=== PATIENT | female | born 1940 | race Two or more races ===

== ENCOUNTER 2024-08-10 11:39 | Inpatient (IN) | payer OTHER, MEDICAID ==
[2024-08-09] MEDS: SODIUM CHLORIDE 0.9% 1,000 ML IV SCH (19:45)
[~2024-08-10] VITALS: Ht 152.4 cm; Wt 47.9 kg
--- NOTE | 2024-08-10 11:54 | ED.PDOC ---
Altered Mental Status HPI Comments 84 year old female PER presents to the ED with chief complaint of ALOC. EMS reports patient's family had noted patient has been increasingly confused with associated fever and fatigue since yesterday. EMS relays patient is normally ambulatory, but has not been wanting to get out of bed lately. EMS states patient has history of dementia. Patient notes that she has abdominal pain. Patient denies any chest pain, SOB, dizziness, headache, or N/V/D. 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 Family History Family History: Reviewed,noncontributory to illness, Unknown Social History Smoker: Non-Smoker Alcohol: Denies ETOH Use Drugs: Denies Drug Use Lives In: Home Constitutional: reports: fatigue, fever; denies: chills, diaphoresis, malaise, sweats, weakness, others EENTM: denies: blurred vision, double vision, ear bleeding, ear discharge, ear drainage, ear pain, ear ringing, eye pain, eye redness, hearing loss, mouth pain, mouth swelling, nasal discharge, nose bleeding, nose congestion, nose pain, photophobia, tearing, throat pain, throat swelling, voice changes, others Respiratory: denies: cough, hemoptysis, orthopnea, SOB at rest, shortness of breath, SOB with excertion, stridor, wheezing, others Cardiovascular: denies: chest pain, dizzy spells, diaphoresis, Dyspnea on exertion, edema, irregular heart beat, left arm pain, lightheadedness, palpit ations, PND, syncope, others Gastrointestinal: reports: abdominal pain; denies: abdomen distended, blood streaked bowels, constipated, diarrhea, dysphagia, difficulty swallowing, hematemesis, melena, nausea, poor appetite, poor fluid intake, rectal bleeding, rectal pain, vomiting, others Genitourinary: denies: abnormal vagina bleeding, burning, dyspareunia, dysuria, flank pain, frequency, hematuria, incontinence, pain, , vagina dischar ge, urgency, others Neurological: denies: dizziness, fainting, headache, left sided numbness, left sided weakness, numbness, paresthesia, pre-existing deficit, right sided numbness, right sided weakness, seizure, speech problems, tingling, tremors, weakness, others Musculoskeletal: denies: back pain, gout, joint pain, joint swelling, muscle pain, muscle stiffness, neck pain, others Integumetry: denies: bruises, change in color, change in hair/nails, dryness, laceration, lesions, lumps, rash, wounds, others Allergic/Immunocompromised: denies: Difficulty Healing, Frequent Infections, Hives, Itching, others Hematologic/Lymphatic: denies: anemia, blood clots, easy bleeding, easy bruising, swollen glands, others Endocrine: denies: excessive hunger, excessive sweating, excessive thirst, excessive urination, flushing, intolerance to cold, intolerance to heat, unexplained weight gain, unexplained weight loss, others Psychiatric: denies: anxiety, bipolar disorder, depression, hopeless, panic disorder, schizophrenia, sleepless, suicidal, others All Other Systems: Reviewed and Negative Physical Exam General Appearance: No Apparent Distress, Normal HEENT: Normal ENT Inspection, PERRL/EOMI Neck: Full Range of Motion, Non-Tender, Normal, Normal Inspection Respiratory: Chest Non-Tender, Lungs Clear, No Accessory Muscle Use, No Respiratory Distress, Normal Breath Sounds Cardiovascular: No Edema, No JVD, No Murmur, No Gallop, Normal Peripheral Pulses, Regular Rate/Rhythm Breast Exam: Deferred Gastrointestinal: No Organomegaly, No Pulsatile Mass, Normal Bowel Sounds, So ft, Tenderness (Abdominal tenderness, no guarding.) Genitalia: Deferred Pelvic: Deferred Rectal: Deferred Extremities: No calf tenderness, Normal capillary refill, Normal inspection, Normal range of motion, Non-tender, No pedal edema Musculoskeletal : Apperance: Normal Neurologic: Alert, 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 no STEMI. Was a procedure done? Was a procedure done?: No Differential Diagnosis (ALOC) Differential Diagnosis: Dehydration, Hypoglycemia, Encephalopathy, Meningitis, Hypoxemia, Seizure, Closed Head Injury, CVA, Mass Lesion, SAH, Drug Overdose, ETOH Intoxication, Heart Failure, Renal Failure Other Differential Diagnosis Drug abuse/withdrawal, alcohol abuse/withdrawal, uremic encephalopathy, hepatic encephalopathy, encephalitis, meningitis, space occupying mass, electrolyte abnormalities, TIA, CVA, polypharmacy, DKA,... X-Ray, Labs, Meds, VS Vital Signs Date Time Temp Pulse Resp B/P (MAP) Pulse Ox O2 Delivery O2 Flow Rate FiO2 08/10/24 15:00 58 16 113/49 (70) 98 08/10/24 13:01 98.6 61 17 112/39 (63) 100 98.6 08/10/24 12:08 63 20 97 Nasal Cannula* 2 28 08/10/24 12:08 98.6 63 20 116/48 (70) 97 98.6 08/10/24 12:05 66 08/10/24 12:01 101.3 63 22 122/53 (76) 94 08/10/24 11:54 58 08/10/24 11:48 58 Lab Test 08/10/24 15:27 08/10/24 14:43 08/10/24 12:49 08/10/24 12:40 Range/Units Troponin I High Sensitivity 11 9 </=34 ng/L Urine Color Yellow Yellow Urine Clarity Clear Clear Urine pH 6.5 5.0-9.0 Urine Specific Ector 1.048 H 1.001-1.035 Urine Protein Trace H Negative Urine Ketones Negative Negative Urine Blood 1+ H Negative /uL Urine Nitrite Negative Negative Urine Bilirubin Negative Negative Urine Urobilinogen Normal Negative mg/dL Urine Leukocyte Esterase 1+ Negative /uL Urine RBC 15 0 - 4 /hpf Urine WBC 28 0 - 5 /hpf Urine Squamous Epithelial Cells Few <5 /hpf Urine Bacteria None seen None Seen /hpf Urine Mucus Few None Seen Urine Glucose Normal Normal mg/dL Influenza Type A Antigen Positive Negative Influenza Type B Antigen Negative Negative SARS-CoV-2 Antigen (Rapid) Negative NEGATIVE Group A Streptococcus Rapid Positive Test 08/10/24 12:10 Range/Units White Blood Count 13.3 H 4.4-10.8 10^3/uL Red Blood Count 4.79 4.0-5.20 10^6/uL Hemoglobin 13.0 12.2-16.2 g/dL Hematocrit 38.6 36.0-46.0 % Mean Corpuscular Volume 80.6 80.0-100.0 fL Mean Corpuscular Hemoglobin 27.2 L 28.0-32.0 pg Mean Corpuscular Hemoglobin Concent 33.8 32.0-36.0 g/dL Red Cell Distribution Width 15.1 H 11.8-14.3 % Platelet Count 166 140-450 10^3/uL Mean Platelet Volume 8.0 6.9-10.8 fL Neutrophils (%) (Auto) 86.7 H 37.0-80.0 % Lymphocytes (%) (Auto) 6.8 L 10.0-50.0 % Monocytes (%) (Auto) 6.2 0.0-12.0 % Eosinophils (%) (Auto) 0.0 0.0-7.0 % Basophils (%) (Auto) 0.3 0.0-2.0 % Neutrophils # (Auto) 11.5 H 1.6-8.6 10 ^3/uL Lymphocytes # (Auto) 0.9 0.4-5.4 10 ^3/uL Monocytes # (Auto) 0.8 0-1.3 10 ^3/uL Eosinophils # (Auto) 0 0-0.8 10 ^3/uL Basophils # (Auto) 0 0-0.2 10 ^3/uL Nucleated Red Blood Cells 0.0 % Sodium Level 137 136-145 mmol/L Potassium Level 3.6 3.5-5.1 mmol/L Chloride Level 106 98-107 mmol/L Carbon Dioxide Level 23 20-31 mmol/L Anion Gap 8 5-15 Blood Urea Nitrogen 15 9-23 mg/dL Creatinine 1.29 H 0.550-1.02 mg/dL Glomerular Filtration Rate Calc 40 >90 mL/min BUN/Creatinine Ratio 11.6 10.0-20.0 Serum Glucose 113 H 74-106 mg/dL Calcium Level 11.9 H 8.7-10.4 mg/dL Total Bilirubin 1.2 H 0.2-1.0 mg/dL Aspartate Amino Transferase (AST) 20 13-40 U/L Alanine Aminotransferase (ALT) 13 7-40 U/L Alkaline Phosphatase 84 46-116 U/L Troponin I High Sensitivity 10 </=34 ng/L Total Protein 7.1 5.7-8.2 g/dL Albumin 4.5 3.2-4.8 g/dL Lipase 31 12-53 U/L Current Medications Medications (Trade) Dose Ordered Sig/Billy Route Start Time Stop Time Status Last Admin Metoclopramide HCl (Reglan Injection) 10 mg ONCE ONCE IV 08/10/24 12:00 08/10/24 12:01 DC 08/10/24 12:09 Sodium Chloride 1,000 ml @ 1,000 mls/hr Q1H ONCE IVB 08/10/24 12:00 08/10/24 12:59 DC 08/10/24 12:10 Oseltamivir Phosphate (Tamiflu 75MG Capsule) 75 mg ONCE ONCE PO 08/10/24 15:15 08/10/24 15:16 DC 08/10/24 16:05 Amoxicillin 500 mg ONCE ONCE PO 08/10/24 15:30 08/10/24 15:31 DC 08/10/24 16:08 CT Abd/Pel: Findings: Lung Bases: Atelectasis and scarring in the lung bases. Liver: The liver is normal in size. No focal lesions. Normal hepatic vascular enhancement. Gallbladder and biliary Tree: Cholelithiasis noted without secondary findings of cholecystitis or biliary obstruction. Spleen: Unremarkable Pancreas: The pancreas is normal in appearance without focal lesions or abnormal enhancement. Adrenal Glands: Unremarkable Kidneys: Left lower pole renal calculi measuring up to 10 mm with associated renal cortical thinning and scarring. No hydronephrosis. Bladder: Unremarkable Bowel: The stomach is grossly normal in appearance. Small bowel and colon are normal in caliber and distribution. Normal appendix is visualized in the right lower quadrant without findings of appendicitis. Sigmoid diverticulosis. Ascites: Absent Lymphadenopathy: No mesenteric, retroperitoneal or periportal lymphadenopathy. Abdominal wall and Mesentery: Unremarkable. Vasculature: The visualized abdominal aorta is normal in size and caliber. There is calcified atherosclerotic plaque involving the aorta and its branches. Abdominal and pelvic vessels demonstrate normal enhancement. Pelvic Organs: Unremarkable Musculoskeletal: Grade 1 anterolisthesis of L4 on L5 and L5 on S1. IMPRESSION: 1. No acute abdominal or pelvic finding. Cholelithiasis. Left lower pole renal calculi measuring up to 10 mm. No hydronephrosis. Diverticulosis. CT Head: FINDINGS: There is no evidence of acute intracranial hemorrhage, mass, mass effect midline shift. There is no hydrocephalus or extra-axial fluid collection. There is a small area of hypodensity in the left anterior basal ganglia which May relate to chronic lacunar infarct. The licona-white matter differentiation is otherwise maintained. The visualized paranasal sinuses and mastoid air cells are clear. The calvarium is intact. IMPRESSION: 1. No acute intracranial process. 2. Likely chronic lacunar infarct in the left anterior basal ganglia. Chest XR: FINDINGS: Lines and tubes: None Cardiomediastinal silhouette: prominent Pulmonary vasculature: prominent Lung expansion: normal Lung airspace: normal Lung interstitium: normal Pleura: normal Pneumothorax: no Bones: Unremarkable Other: no IMPRESSION: Mild cardiomegaly with pulmonary congestion. Time of 1ST Reevaluation: 12:50 Reevaluation 1ST: Unchanged Patient Education/Counseling: Diagnosis, Treatment Family Education/Counseling: No Family Present Additional Information I reviewed the following notes from patient's past medical encounters: None The following tests were ordered, and results were reviewed by me: CT head, CT Abd/Pel W/ IV Con, EKG, Strep, Influenza, Covid, Troponin, Lipase, CBC, CMP, UA Additional Information was gathered from interviewing the following independent historians: EMS I reviewed and agreed with the following test results read by other providers: CT head, CT Abd/Pel W/ IV Con I discussed treatment and results with medical personnel. Departure 1 Departure Time of Disposition: 15:06 Impression: Primary Impression: Acute encephalopathy Additional Impressions: Acute renal failure Influenza A Strep throat Disposition: ADMITTED INPATIENT Admit to: Tele Condition: Guarded Critical Care Note Critical Care Time?: Yes (45 min-critical care time only) Stability Stability form required: No Heart Score Heart Score: Heart Score Response (Comments) Value History N/A 0 EKG N/A 0 Age N/A 0 Risk Factors N/A 0 Troponin N/A 0 Total 0 I personally scribed for SILVINA LANDEROS MD ([email or web address]) on 08/10/24 at 11:54. Electronically submitted by Osei Li ([email or web address]). I personally scribed for SILVINA LANDEROS MD ([email or web address]) on 08/10/24 at 15:02. Electronically submitted by Osei Li ([email or web address]). I personally scribed for SILVINA LANDEROS MD ([email or web address]) on 08/10/24 at 15:07. Electronically submitted by Osei Li ([email or web address]). I personally scribed for SILVINA LANDEROS MD ([email or web address]) on 08/10/24 at 15:09. Electronically submitted by Osei Li ([email or web address]). SILVINA LANDEROS MD Aug 10, 2024 11:54
[2024-08-10 12:08] VITALS: PULSE 63; RESP 20; O2SAT 97
[2024-08-10] MEDS: METOCLOPRAMIDE HCL 5MG/ml INJ 2ml VIAL IV ONE (12:09)
[2024-08-10] MEDS: SODIUM CHLORIDE 0.9% 1,000 ML IVB ONE (12:10)
[2024-08-10] MEDS: IOHEXOL 300 MG/ML 100ML BOTTLE IJ ONE (12:10)
--- NOTE | 2024-08-10 12:25 | DVH ---
XY CHEST PORTABLE, HISTORY: sob COMPARISON: None None TECHNICAL DATA: 1 view of the chest was obtained. FINDINGS: Lines and tubes: None Cardiomediastinal silhouette: prominent Pulmonary vasculature: prominent Lung expansion: normal Lung airspace: normal Lung interstitium: normal Pleura: normal Pneumothorax: no Bones: Unremarkable Other: no IMPRESSION: Mild cardiomegaly with pulmonary congestion.
[2024-08-10 12:30] LABS: Basophils # (auto) 0 10 ^3/uL (0-0.2); Basophils % (auto) 0.3 % (0.0-2.0); Eosinophils # (auto) 0 10 ^3/uL (0-0.8); Hematocrit 38.6 % (36.0-46.0); Lymphocytes # (auto) 0.9 10 ^3/uL (0.4-5.4); Lymphocytes % (auto) 6.8 % (10.0-50.0); Mean Corpuscular Hemoglobin 27.2 pg (28.0-32.0); Mean Corpuscular Hgb Conc. 33.8 g/dL (32.0-36.0); Mean Corpuscular Volume 80.6 fL (80.0-100.0); Monocytes # (auto) 0.8 10 ^3/uL (0-1.3); Monocytes % (auto) 6.2 % (0.0-12.0); Neutrophils # (auto) 11.5 10 ^3/uL (1.6-8.6); Neutrophils % (auto) 86.7 % (37.0-80.0); Platelet Count (auto) 166 10^3/uL (140-450); Red Blood Cells 4.79 10^6/uL (4.0-5.20); Red Cell Distribution Width 15.1 % (11.8-14.3); White Blood Cell 13.3 10^3/uL (4.4-10.8)
[2024-08-10 12:55] LABS: Alanine Aminotransferase 13 U/L (7-40); Albumin 4.5 g/dL (3.2-4.8); Alkaline Phosphatase 84 U/L (46-116); Anion Gap 8 (5-15); Aspartate Aminotransferase 20 U/L (13-40); BUN/Creatinine Ratio 11.6 (10.0-20.0); Blood Urea Nitrogen 15 mg/dL (9-23); Carbon Dioxide 23 mmol/L (20-31); Chloride 106 mmol/L (98-107); Potassium 3.6 mmol/L (3.5-5.1); Sodium 137 mmol/L (136-145)
[2024-08-10 12:56] LABS: Bilirubin, Total 1.2 mg/dL (0.2-1.0); Total Protein 7.1 g/dL (5.7-8.2)
[2024-08-10 13:01] LABS: Calcium 11.9 mg/dL (8.7-10.4); Glucose 113 mg/dL (74-106)
--- NOTE | 2024-08-10 13:31 | DVH ---
EXAM: CT HEAD WITHOUT CONTRAST HISTORY: ams COMPARISON: None TECHNIQUE: Axial images of the head were obtained and reformatted in coronal and sagittal planes. All CT scans at this medical facility are performed using dose modulation techniques as appropriate t o a performed exam including the following: Automated exposure control was utilized; adjustment of th e MA and/or KV according to patient size; and use of iterative reconstruction technique. CT Dose: CTDI volume is 51.89 mGy. Dose-length product is 815.04 mGy*cm FINDINGS: There is no evidence of acute intracranial hemorrhage, mass, mass effect midline shift. There is no h ydrocephalus or extra-axial fluid collection. There is a small area of hypodensity in the left anter ior basal ganglia which May relate to chronic lacunar infarct. The licona-white matter differentiation is otherwise maintained. The visualized paranasal sinuses and mastoid air cells are clear. The calvarium is intact. IMPRESSION: 1. No acute intracranial process. 2. Likely chronic lacunar infarct in the left anterior basal ganglia. HS:Y
[2024-08-10 13:34] LABS: Lipase 31 U/L (12-53)
--- NOTE | 2024-08-10 13:36 | DVH ---
Exam: CT CT AB PEL WITH IV CON ONLY History: abd pain COMPARISON: None Technique: Multidetector spiral CT of the abdomen and pelvis was performed from lung bases to pubic symphysis. Intravenous contrast was administered during this examination. Portal venous imaging was obtained. Axial, coronal and sagittal multiplanar reformats were performed by the technologist on a separate workstation. Radiation Dose : Abdomen/Pelvis: CTDIvol 8 mGy, DLP 392 mGy*cm. CONTRAST: Type of contrast: Omni 300 Contrast injected: 100 mL Findings: Lung Bases: Atelectasis and scarring in the lung bases. Liver: The liver is normal in size. No focal lesions. Normal hepatic vascular enhancement. Gallbladder and biliary Tree: Cholelithiasis noted without secondary findings of cholecystitis or lucy iary obstruction. Spleen: Unremarkable Pancreas: The pancreas is normal in appearance without focal lesions or abnormal enhancement. Adrenal Glands: Unremarkable Kidneys: Left lower pole renal calculi measuring up to 10 mm with associated renal cortical thinnin g and scarring. No hydronephrosis. Bladder: Unremarkable Bowel: The stomach is grossly normal in appearance. Small bowel and colon are normal in caliber and d istribution. Normal appendix is visualized in the right lower quadrant without findings of appendici tis. Sigmoid diverticulosis. Ascites: Absent Lymphadenopathy: No mesenteric, retroperitoneal or periportal lymphadenopathy. Abdominal wall and Mesentery: Unremarkable. Vasculature: The visualized abdominal aorta is normal in size and caliber. There is calcified atheros clerotic plaque involving the aorta and its branches. Abdominal and pelvic vessels demonstrate normal enhancement. Pelvic Organs: Unremarkable Musculoskeletal: Grade 1 anterolisthesis of L4 on L5 and L5 on S1. IMPRESSION: 1. No acute abdominal or pelvic finding. Cholelithiasis. Left lower pole renal calculi measuring up t o 10 mm. No hydronephrosis. Diverticulosis. Radiation optimization: All CT scans at this facility use at least one of these dose optimization juan hniques: Automated exposure control mA and/or kV adjustment per patient size (includes targeted exams where dose is matched to clinical indication) or iterative reconstruction. HS:Y
[2024-08-10 14:07] LABS: Rapid Influenza B Negative (Negative)
[2024-08-10 14:08] LABS: Rapid Influenza A Positive (Negative)
[2024-08-10 14:10] LABS: Rapid Strep A Screen-Throat Positive
[2024-08-10 14:11] LABS: COVID19 ANTIGEN SOFIA FIA NEGATIVE (NEGATIVE)
[2024-08-10 14:54] LABS: Urine Bacteria None Seen /hpf (None Seen)
[2024-08-10] MEDS ORDERED: PENICILLIN V POTASSIUM 250 MG TAB PO ONE (15:15)
[2024-08-10 15:32] LABS: Urine Blood 1+ /uL (Negative); Urine Clarity Clear (Clear); Urine Color Yellow (Yellow); Urine Mucus FEW (None Seen); Urine Protein, UAD TRACE (Negative); Urine Specific Gravity 1.048 (1.001-1.035); Urine Squamous Epithelial Cell FEW /hpf (<5); Urine Urobilinogen Normal (Negative); Urine WBC 28 /hpf (0 - 5); Urine pH 6.5 (5.0-9.0)
[2024-08-10] MEDS: AMOXICILLIN TRIHYDRATE 250 MG CAP PO ONE (15:32)
[2024-08-10] MEDS: OSELTAMIVIR 75 MG CAP PO ONE (16:05)
[2024-08-10] MEDS ORDERED: DOCUSATE SOD 100 MG CAP PO PRN (18:45)
[2024-08-10] MEDS ORDERED: ACETAMINOPHEN 325 MG TAB PO PRN (18:45)
[2024-08-10] MEDS ORDERED: ONDANSETRON HCL 4 MG/2 ML VIAL IV PRN (18:45)
--- NOTE | 2024-08-10 20:22 | DVHHP2 ---
History of Present Illness Reason for Visit: Acute encephalopathy History of Present Illness The patient is a 84-year-old female with past medical history of dementia and hypertension who presented to [facility] ED for evaluation of altered level of consciousness. Family reports patient has increasing confusion state, associated fever, fatigue, generalized weakness, abdominal pain, getting worse that prompted this visit. Patient was seen and evaluated in the ED, laboratory data shows WBC 13.3, platelets 166, sodium 137, potassium 3.6, BUN 15, creatinine 1.29, GFR 40, glucose 113, calcium 11.9, total bilirubin 1.2, troponin 11, blood pressure 120/62, heart rate 66, temperature 98.6 F, O2 sa turation 97% on oxygen. Head CT showed no acute intracranial process, likely chronic lacunar infarct in the left anterior basal ganglia. Urinalysis positive for urinary tract infection. Patient was started on IV antibiotic regimen Rocephin, please see medication orders section in the computer. On my assessment, daughter at bedside, patient denies chest pain, no headache, no dizziness, no shortness of breath, no nausea, no vomiting, no fever, no chills. Patient was admitted for further evaluation and medical management. Past Medical History Dementia, HTN, CVA Past Surgical History Unknown Family History Reviewed, noncontributory to the management of this case. Past Social History The patient lives at home, denies smoking, alcohol or illicit drugs abuse. Review of Systems Constitutional: Yes: Fever, Weakness, Other (Fatigue); No: Chills, Sweats, Malaise Eyes: No: Pain, Vision change, Conjunctivae inflammation, Eyelid inflammation, Other, Redness ENT: No: Ear pain, Ear discharge, Nose pain, Nose discharge, Nose congestion, Mouth pain, Mouth swelling, Throat pain, Throat swelling, Other Respiratory: No: Cough, Dry, Shortness of breath, SOB with excertion, Wheezing, Hemoptysis, Pleuritic Pain, Sputum, Wheezing, Other Cardiovascular: No: Chest Pain, Palpitations, Orthopnea, Paroxysmal Noc. Dyspnea, Edema, Lt Headedness, Other Gastrointestinal: Abdominal Pain; No: Nausea, Vomiting, Diarrhea, Constipation, Melena, Hematochezia, Other Genitourinary: No Dysuria, No Frequency, No Incontinence, No Hematuria, No Retention, No Other Musculoskeletal: No: other, neck pain, shoulder pain, arm pain, back pain, hand pain, leg pain, foot pain Skin: No: Rash, Lesions, Jaundice, Bruising, Other Neurological: Confusion; No: Weakness, Numbness, Incoordination, Change in speech, Seizures, Other Allergies: Coded Allergies: NO KNOWN ALLERGIES (Unverified , 08/10/24) Medications Current Medications Medications Dose Ordered Sig/Billy Route Start Time Stop Time Status Last Admin Dose Admin Oseltamivir Phosphate 30 mg Q12HR PO 08/10/24 22:00 08/15/24 21:59 Ceftriaxone Sodium 50 ml @ 100 mls/hr DAILY@09 IV 08/11/24 09:00 Donepezil HCl 10 mg HS PO 08/10/24 22:00 Sodium Chloride 1,000 ml @ 60 mls/hr [id number] IV 08/10/24 18:45 08/09/24 19:45 60 MLS/HR Acetaminophen/ Hydrocodone Bitart 1 tab Q4HP PRN PO 08/10/24 18:45 Ondansetron HCl 4 mg Q4HP PRN IV 08/10/24 18:45 Docusate Sodium 100 mg BIDPRN PRN PO 08/10/24 18:45 Multivitamins 1 tab DAILY PO 08/11/24 10:00 Acetaminophen 650 mg Q6HP PRN PO 08/10/24 18:45 Exam Vital Signs Vital Signs Date Time Temp Pulse Resp B/P (MAP) Pulse Ox O2 Delivery O2 Flow Rate FiO2 08/10/24 18:19 66 18 120/62 (81) 98 08/10/24 13:01 98.6 98.6 08/10/24 12:08 Nasal Cannula* 2 28 General Appearance: Alert, Cooperative, No acute distress, Other (Oriented x2) HEENT: Atraumatic, PERRLA, EOMI, Mucous membr. moist/pink Respiratory: Clear to auscultation, Normal air movement Cardiovascular: Regular rate, Normal S1, Normal S2, No murmurs Abdominal: Normal bowel sounds, Soft, No tenderness, No hepatospenomegaly, No masses Extremities: No clubbing, No cyanosis, No edema, Normal pulses, No tenderness/swelling Skin: No rashes, No breakdown, No significant lesion Neuro: Normal speech, Normal tone, Sensation intact, Cranial nerves 3-12 NL, Reflexes 2+, Other (Generalized weakness) Psych/Mental Status: Mental status NL, Mood NL Labs/Xrays Labs Test 08/10/24 15:27 08/10/24 14:43 08/10/24 12:40 08/10/24 12:10 Range/Units Troponin I High Sensitivity 11 </=34 ng/L Urine Color Yellow Yellow Urine Clarity Clear Clear Urine pH 6.5 5.0-9.0 Urine Specific [place] 1.048 H 1.001-1.035 Urine Protein Trace H Negative Urine Ketones Negative Negative Urine Blood 1+ H Negative /uL Urine Nitrite Negative Negative Urine Bilirubin Negative Negative Urine Urobilinogen Normal Negative mg/dL Urine Leukocyte Esterase 1+ Negative /uL Urine RBC 15 0 - 4 /hpf Urine WBC 28 0 - 5 /hpf Urine Squamous Epithelial Cells Few <5 /hpf Urine Bacteria None seen None Seen /hpf Urine Mucus Few None Seen Urine Glucose Normal Normal mg/dL Influenza Type A Antigen Positive Negative Influenza Type B Antigen Negative Negative SARS-CoV-2 Antigen (Rapid) Negative NEGATIVE Group A Streptococcus Rapid Positive White Blood Count 13.3 H 4.4-10.8 10^3/uL Red Blood Count 4.79 4.0-5.20 10^6/uL Hemoglobin 13.0 12.2-16.2 g/dL Hematocrit 38.6 36.0-46.0 % Mean Corpuscular Volume 80.6 80.0-100.0 fL Mean Corpuscular Hemoglobin 27.2 L 28.0-32.0 pg Mean Corpuscular Hemoglobin Concent 33.8 32.0-36.0 g/dL Red Cell Distribution Width 15.1 H 11.8-14.3 % Platelet Count 166 140-450 10^3/uL Mean Platelet Volume 8.0 6.9-10.8 fL Neutrophils (%) (Auto) 86.7 H 37.0-80.0 % Lymphocytes (%) (Auto) 6.8 L 10.0-50.0 % Monocytes (%) (Auto) 6.2 0.0-12.0 % Eosinophils (%) (Auto) 0.0 0.0-7.0 % Basophils (%) (Auto) 0.3 0.0-2.0 % Neutrophils # (Auto) 11.5 H 1.6-8.6 10 ^3/uL Lymphocytes # (Auto) 0.9 0.4-5.4 10 ^3/uL Monocytes # (Auto) 0.8 0-1.3 10 ^3/uL Eosinophils # (Auto) 0 0-0.8 10 ^3/uL Basophils # (Auto) 0 0-0.2 10 ^3/uL Nucleated Red Blood Cells 0.0 % Sodium Level 137 136-145 mmol/L Potassium Level 3.6 3.5-5.1 mmol/L Chloride Level 106 98-107 mmol/L Carbon Dioxide Level 23 20-31 mmol/L Anion Gap 8 5-15 Blood Urea Nitrogen 15 9-23 mg/dL Creatinine 1.29 H 0.550-1.02 mg/dL Glomerular Filtration Rate Calc 40 >90 mL/min BUN/Creatinine Ratio 11.6 10.0-20.0 Serum Glucose 113 H 74-106 mg/dL Calcium Level 11.9 H 8.7-10.4 mg/dL Total Bilirubin 1.2 H 0.2-1.0 mg/dL Aspartate Amino Transferase (AST) 20 13-40 U/L Alanine Aminotransferase (ALT) 13 7-40 U/L Alkaline Phosphatase 84 46-116 U/L Total Protein 7.1 5.7-8.2 g/dL Albumin 4.5 3.2-4.8 g/dL Lipase 31 12-53 U/L PATIENT: AMADEO BHATIACT: [id number] UNIT: [id number] : 1940 LOC: ER ROOM / BED: / AGE / SEX: 84 / F ADM STATUS: REG ER SERVICE 1150 ORDERING PHYSICIAN: SILVINA LANDEROS MD PROCEDURE(s): ABPLIV - CT AB PEL WITH IV CON ONLY REASON: abd pain ORDER NUMBER(s): [id number], ACCESSION NUMBER(s): [id number] Exam: CT CT AB PEL WITH IV CON ONLY History: abd pain COMPARISON: None Technique: Multidetector spiral CT of the abdomen and pelvis was performed from lung bases to pubic symphysis. Intravenous contrast was administered during this examination. Portal venous imaging was obtained. Axial, coronal and sagittal multiplanar reformats were performed by the technologist on a separate workstation. Radiation Dose : Abdomen/Pelvis: CTDIvol 8 mGy, DLP 392 mGy*cm. CONTRAST: Type of contrast: Omni 300 Contrast injected: 100 mL Findings: Lung Bases: Atelectasis and scarring in the lung bases. Liver: The liver is normal in size. No focal lesions. Normal hepatic vascular enhancement. Gallbladder and biliary Tree: Cholelithiasis noted without secondary findings of cholecystitis or biliary obstruction. Spleen: Unremarkable Pancreas: The pancreas is normal in appearance without focal lesions or abnormal enhancement. Adrenal Glands: Unremarkable Kidneys: Left lower pole renal calculi measuring up to 10 mm with associated renal cortical thinning and scarring. No hydronephrosis. Bladder: Unremarkable Bowel: The stomach is grossly normal in appearance. Small bowel and colon are normal in caliber and distribution. Normal appendix is visualized in the right lower quadrant without findings of appendicitis. Sigmoid diverticulosis. Ascites: Absent Lymphadenopathy: No mesenteric, retroperitoneal or periportal lymphadenopathy. Abdominal wall and Mesentery: Unremarkable. Vasculature: The visualized abdominal aorta is normal in size and caliber. There is calcified atherosclerotic plaque involving the aorta and its branches. Abdominal and pelvic vessels demonstrate normal enhancement. Pelvic Organs: Unremarkable Musculoskeletal: Grade 1 anterolisthesis of L4 on L5 and L5 on S1. IMPRESSION: 1. No acute abdominal or pelvic finding. Cholelithiasis. Left lower pole renal calculi measuring up to 10 mm. No hydronephrosis. Diverticulosis. ORDERING PHYSICIAN: SILVINA LANDEROS MD PROCEDURE(s): HWOCT - HEAD WITHOUT CONTRAST REASON: [facility] ORDER NUMBER(s): [id number], ACCESSION NUMBER(s): [id number] EXAM: CT HEAD WITHOUT CONTRAST HISTORY: [facility] COMPARISON: None TECHNIQUE: Axial images of the head were obtained and reformatted in coronal and sagittal planes. All CT scans at this medical facility are performed using dose modulation techniques as appropriate to a performed exam including the following: Automated exposure control was utilized; adjustment of the MA and/or KV according to patient size; and use of iterative reconstruction technique. CT Dose: CTDI volume is 51.89 mGy. Dose-length product is 815.04 mGy*cm FINDINGS: There is no evidence of acute intracranial hemorrhage, mass, mass effect midline shift. There is no hydrocephalus or extra-axial fluid collection. There is a small area of hypodensity in the left anterior basal ganglia which May relate to chronic lacunar infarct. The licona-white matter differentiation is otherwise maintained. The visualized paranasal sinuses and mastoid air cells are clear. The calvarium is intact. IMPRESSION: 1. No acute intracranial process. 2. Likely chronic lacunar infarct in the left anterior basal ganglia. ORDERING PHYSICIAN: SILVINA LANDEROS MD PROCEDURE(s): CXRP - CHEST PORTABLE REASON: sob ORDER NUMBER(s): [id number], ACCESSION NUMBER(s): [id number] XY CHEST PORTABLE, HISTORY: sob COMPARISON: None None TECHNICAL DATA: 1 view of the chest was obtained. FINDINGS: Lines and tubes: None Cardiomediastinal silhouette: prominent Pulmonary vasculature: prominent Lung expansion: normal Lung airspace: normal Lung interstitium: normal Pleura: normal Pneumothorax: no Bones: Unremarkable Other: no IMPRESSION: Mild cardiomegaly with pulmonary congestion. Assessment/Plan Assessment/Plan Acute encephalopathy Strep throat Influenza A Urinary tract infection Acute renal failure Generalized weakness Plan 1. Admit to telemetry unit 2. Breathing treatment 3. Pain control management 4. IV antibiotic management 5. Management of fluids and electrolytes 6. Consultation for hospitalist 7. Diagnostic test head CT 8. DVT prophylaxis-on SCDs 9. Repeat labs CBC, CMP in a.m. 10. Home medication reviewed and reconciled 11. Continue with current medical management 12. Treatment plan discussed with patient and RN. Patient verbalized understanding. Plan discussed with: Patient, Other (RN) My Orders Orders - SHRUTHI GAZRON DNP Procedure Category Date Status Time Ceftriaxone 1gm/50ml PHA 08/11/24 In Process D5w (Rocephin) 09:00 Urine Bacterial SAUL 08/10/24 In Process Culture 18:39 Donepezil Tablet PHA 08/10/24 In Process (Aricept Tablet) 22:00 Allergies BARAK 08/10/24 In Process 18:39 Code Status CODE 08/10/24 Transmitted 18:39 Sodium Chloride 0.9% PHA 08/10/24 In Process 18:45 Oxygen Per Hour RT 08/10/24 Transmitted 18:39 Hydrocodone-Acet PHA 08/10/24 In Process 5/325mg Tab ([place] 18:45 Ondansetron Hcl PHA 08/10/24 In Process (Zofran) 18:45 Docusate Sodium PHA 08/10/24 In Process Capsule (Colace 18:45 Multiple Vitamin PHA 08/11/24 In Process Tablet (Mvi Tab) 10:00 Fall Risk Precautions BARAK 08/10/[address] 18:39 Complete Blood Count LAB 08/11/24 Verified 04:00 Comprehensive LAB 08/11/24 Verified Metabolic Panel 04:00 Cardiac DIET 08/11/24 Transmitted Diet-2gna,Lofat,Lochol Breakfast Condition: Serious BARAK 08/10/24 In Process 18:39 Acetaminophen Tablet PHA 08/10/24 In Process (Tylenol Tablet) 18:45 Sequential BARAK 08/10/24 In Process Compression Device Oseltamivir 30mg PHA 08/10/24 In Process Capsule (Tamiflu 30mg 22:00 Problem List: (1) Acute encephalopathy (2) Influenza A (3) Strep throat (4) Acute renal failure (5) Urinary tract infection (6) Generalized weakness Date of Service: Aug 10, 2024 Billing Provider: SHRUTHI GARZON DNP Common Visit Codes: [id number] INP/OBS CARE (HIGH) SHRUTHI GARZON DNP Aug 10, 2024 20:22
[2024-08-10] MEDS ORDERED: MORPHINE SULFATE INJ 2 MG/ml SYRG IV PRN (20:30)
[2024-08-10] MEDS ORDERED: NITROGLYCERIN 0.4 MG SL TAB SL PRN (20:30)
[2024-08-10] MEDS: DONEPEZIL HYDROCHLORIDE 5 MG TAB PO SCH (22:00)
[2024-08-10] MEDS: OSELTAMIVIR 30 MG CAP PO SCH (22:00)
[2024-08-11 04:19] LABS: Basophils # (auto) 0 10 ^3/uL (0-0.2); Basophils % (auto) 0.3 % (0.0-2.0); Eosinophils # (auto) 0 10 ^3/uL (0-0.8); Hematocrit 37.4 % (36.0-46.0); Hemoglobin 12.5 g/dL (12.2-16.2); Lymphocytes # (auto) 1.2 10 ^3/uL (0.4-5.4); Lymphocytes % (auto) 12.9 % (10.0-50.0); Mean Corpuscular Hemoglobin 27.5 pg (28.0-32.0); Mean Corpuscular Hgb Conc. 33.4 g/dL (32.0-36.0); Mean Corpuscular Volume 82.2 fL (80.0-100.0); Monocytes # (auto) 0.5 10 ^3/uL (0-1.3); Monocytes % (auto) 5.6 % (0.0-12.0); Neutrophils # (auto) 7.3 10 ^3/uL (1.6-8.6); Neutrophils % (auto) 81.2 % (37.0-80.0); Nucleated Red Blood Cells % 0.1 %; Platelet Count (auto) 155 10^3/uL (140-450); Red Blood Cells 4.55 10^6/uL (4.0-5.20)
[2024-08-11 04:48] LABS: Alanine Aminotransferase 13 U/L (7-40); Alkaline Phosphatase 72 U/L (46-116); Anion Gap 8 (5-15); Aspartate Aminotransferase 27 U/L (13-40); BUN/Creatinine Ratio 17.5 (10.0-20.0); Bilirubin, Total 0.8 mg/dL (0.2-1.0); Blood Urea Nitrogen 20 mg/dL (9-23); Carbon Dioxide 23 mmol/L (20-31); Potassium 3.6 mmol/L (3.5-5.1); Sodium 139 mmol/L (136-145); Total Protein 6.3 g/dL (5.7-8.2)
[2024-08-11 05:08] LABS: Calcium 11.6 mg/dL (8.7-10.4); Chloride 108 mmol/L (98-107); Glucose 74 mg/dL (74-106)
[2024-08-11 07:47] VITALS: PULSE 60; RESP 11; O2SAT 96
[2024-08-11] MEDS: cefTRIAXone 1GM/50ML D5W 50 ML IV SCH (08:37)
[2024-08-11] MEDS: MULTIPLE VITAMIN TAB PO SCH (10:29)
--- NOTE | 2024-08-11 13:02 | DVHPN2 ---
Reviewed: Care Plan, H&P, Labs, Medications, Previous Orders, Radiology Changes from previous H/P or p: No Changes Eyes: No Pain, No Vision change, No Conjunctivae inflammation, No Eyelid inflammation, No Other, No Redness ENT: No Ear pain, No Ear discharge, No Nose pain, No Nose discharge, No Nose congestion, No Mouth pain, No Mouth swelling, No Throat pain, No Throat swelling, No Other Cardiovascular: No Chest Pain, No Palpitations, No Orthopnea, No Paroxysmal Noc. Dyspnea, No Edema, No Lt Headedness, No Other Respiratory: No Cough, No Dry, No Shortness of breath, No SOB with excertion, No Wheezing, No Hemoptysis, No Pleuritic Pain, No Sputum, No Other Gastrointestinal: No Nausea, No Vomiting; Abdominal Pain; No Diarrhea, No Constipation, No Melena, No Hematochezia, No Other Genitourinary: No Dysuria, No Frequency, No Incontinence, No Hematuria, No Retention, No Other Musculoskeletal: No other, No neck pain, No shoulder pain, No arm pain, No back pain, No hand pain, No leg pain, No foot pain Skin: No Rash, No Lesions, No Jaundice, No Bruising, No Other Objective Vitals Vital Signs Date Time Temp Pulse Resp B/P (MAP) Pulse Ox O2 Delivery O2 Flow Rate FiO2 08/11/24 10:11 56 14 124/55 (78) 100 08/11/24 07:47 97.9 97.9 08/11/24 07:47 Room Air* 0 21 Intake/Output Intake and Output 08/11/24 07:00 Intake Total 1000 ml Balance 1000 ml Intake IV Total 1000 ml Medications Current Medications Medications Dose Ordered Sig/Billy Route Start Time Stop Time Status Last Admin Dose Admin Oseltamivir Phosphate 30 mg Q12HR PO 08/10/24 22:00 08/15/24 21:59 08/11/24 10:32 30 MG Ceftriaxone Sodium 50 ml @ 100 mls/hr DAILY@09 IV 08/11/24 09:00 08/11/24 08:37 100 MLS/HR Donepezil HCl 10 mg HS PO 08/10/24 22:00 08/10/24 22:00 10 MG Sodium Chloride 1,000 ml @ 60 mls/hr [id number] IV 08/10/24 18:45 08/11/24 11:34 60 MLS/HR Acetaminophen/ Hydrocodone Bitart 1 tab Q4HP PRN PO 08/10/24 18:45 Ondansetron HCl 4 mg Q4HP PRN IV 08/10/24 18:45 Docusate Sodium 100 mg BIDPRN PRN PO 08/10/24 18:45 Multivitamins 1 tab DAILY PO 08/11/24 10:00 08/11/24 10:29 1 TAB Acetaminophen 650 mg Q6HP PRN PO 08/10/24 18:45 Nitroglycerin 0.4 mg Q5MINP PRN SL 08/10/24 20:30 Morphine Sulfate 2 mg Q30M PRN IV 08/10/24 20:30 Laboratory Results Laboratory Tests 08/11/24 03:43 Chemistry Test 08/11/24 03:43 Albumin 4.0 g/dL (3.2-4.8) Calcium Level 11.6 mg/dL (8.7-10.4) H Total Protein 6.3 g/dL (5.7-8.2) LFT Test 08/11/24 03:43 Alanine Aminotransferase (ALT) 13 U/L (7-40) Alkaline Phosphatase 72 U/L (46-116) Aspartate Amino Transferase (AST) 27 U/L (13-40) Total Bilirubin 0.8 mg/dL (0.2-1.0) Urinalysis Test 08/10/24 14:43 Urine Color Yellow (Yellow) Urine Clarity Clear (Clear) Urine pH 6.5 (5.0-9.0) Urine Specific [place] 1.048 (1.001-1.035) Urine Protein Trace (Negative) H Urine Ketones Negative (Negative) Urine Blood 1+ /uL (Negative) H Urine Nitrite Negative (Negative) Urine Bilirubin Negative (Negative) Urine Urobilinogen Normal mg/dL (Negative) Urine Leukocyte Esterase 1+ /uL (Negative) Urine RBC 15 /hpf (0 - 4) Urine WBC 28 /hpf (0 - 5) Urine Squamous Epithelial Cells Few /hpf (<5) Urine Bacteria None seen /hpf (None Seen) Urine Mucus Few (None Seen) Urine Glucose Normal mg/dL (Normal) Microbiology Microbiology Date/Time Source Procedure Growth Status 08/10/24 14:43 Voided Urine Urine Culture - Preliminary Resulted Labs and/or images reviewed: Labs reviewed by me, Image(s) reviewed by me Assessment/Plan Assessment/Plan Sepsis secondary to urinary tract infection: Blood cultures urine cultures Rocephin Acute urinary tract infection Acute metabolic encephalopathy Flu type A positive: Tamiflu COVID test negative Chest x-ray negative CT head negative CT abdomen pelvis without contrast negative Hypertension Dementia History of CVA Patient is hospice revoked Time spent 65 minutes Patient is full code Advanced care planning 20 minutes Plan discussed with: Patient My Orders Orders - CLYDE HINKLE MD Procedure Category Date Status Time Blood Culture SAUL 08/11/24 Verified 13:00 Date of Service: Aug 11, 2024 Billing Provider: CLYDE HINKLE MD Common Visit Codes: [id number] CARE 30-74 MIN CLYDE HINKLE MD Aug 11, 2024 13:02
[2024-08-11 19:37] VITALS: PULSE 53; RESP 16; O2SAT 99
[2024-08-12 07:30] VITALS: PULSE 52; RESP 14; O2SAT 100
--- NOTE | 2024-08-12 10:00 | DVHPN2 ---
Reviewed: Care Plan, H&P, Labs, Medications, Previous Orders, Radiology Changes from previous H/P or p: No Changes Eyes: No Pain, No Vision change, No Conjunctivae inflammation, No Eyelid inflammation, No Other, No Redness ENT: No Ear pain, No Ear discharge, No Nose pain, No Nose discharge, No Nose congestion, No Mouth pain, No Mouth swelling, No Throat pain, No Throat swelling, No Other Cardiovascular: No Chest Pain, No Palpitations, No Orthopnea, No Paroxysmal Noc. Dyspnea, No Edema, No Lt Headedness, No Other Respiratory: No Cough, No Dry, No Shortness of breath, No SOB with excertion, No Wheezing, No Hemoptysis, No Pleuritic Pain, No Sputum, No Other Gastrointestinal: No Nausea, No Vomiting; Abdominal Pain; No Diarrhea, No Constipation, No Melena, No Hematochezia, No Other Genitourinary: No Dysuria, No Frequency, No Incontinence, No Hematuria, No Retention, No Other Musculoskeletal: No other, No neck pain, No shoulder pain, No arm pain, No back pain, No hand pain, No leg pain, No foot pain Skin: No Rash, No Lesions, No Jaundice, No Bruising, No Other Objective Vitals Vital Signs Date Time Temp Pulse Resp B/P (MAP) Pulse Ox O2 Delivery O2 Flow Rate FiO2 08/12/24 08:37 54 08/12/24 08:00 18 123/37 (65) 99 08/12/24 07:30 Nasal Cannula* 2 28 08/11/24 19:37 97.9 97.9 Intake/Output Intake and Output 08/12/24 07:00 Intake Total 1160 ml Balance 1160 ml Intake IV Total 1160 ml Medications Current Medications Medications Dose Ordered Sig/Billy Route Start Time Stop Time Status Last Admin Dose Admin Oseltamivir Phosphate 30 mg Q12HR PO 08/10/24 22:00 08/15/24 21:59 08/12/24 09:18 30 MG Ceftriaxone Sodium 50 ml @ 100 mls/hr DAILY@09 IV 08/11/24 09:00 08/12/24 09:18 100 MLS/HR Donepezil HCl 10 mg HS PO 08/10/24 22:00 08/11/24 22:20 10 MG Sodium Chloride 1,000 ml @ 60 mls/hr [id number] IV 08/10/24 18:45 08/12/24 04:18 60 MLS/HR Acetaminophen/ Hydrocodone Bitart 1 tab Q4HP PRN PO 08/10/24 18:45 Ondansetron HCl 4 mg Q4HP PRN IV 08/10/24 18:45 Docusate Sodium 100 mg BIDPRN PRN PO 08/10/24 18:45 Multivitamins 1 tab DAILY PO 08/11/24 10:00 08/12/24 09:18 1 TAB Acetaminophen 650 mg Q6HP PRN PO 08/10/24 18:45 Nitroglycerin 0.4 mg Q5MINP PRN SL 08/10/24 20:30 Morphine Sulfate 2 mg Q30M PRN IV 08/10/24 20:30 Laboratory Results Laboratory Tests 08/11/24 03:43 Urinalysis Test 08/10/24 14:43 Urine Color Yellow (Yellow) Urine Clarity Clear (Clear) Urine pH 6.5 (5.0-9.0) Urine Specific [place] 1.048 (1.001-1.035) Urine Protein Trace (Negative) H Urine Ketones Negative (Negative) Urine Blood 1+ /uL (Negative) H Urine Nitrite Negative (Negative) Urine Bilirubin Negative (Negative) Urine Urobilinogen Normal mg/dL (Negative) Urine Leukocyte Esterase 1+ /uL (Negative) Urine RBC 15 /hpf (0 - 4) Urine WBC 28 /hpf (0 - 5) Urine Squamous Epithelial Cells Few /hpf (<5) Urine Bacteria None seen /hpf (None Seen) Urine Mucus Few (None Seen) Urine Glucose Normal mg/dL (Normal) Microbiology Microbiology Date/Time Source Procedure Growth Status 08/10/24 14:43 Voided Urine Urine Culture - Preliminary Resulted Labs and/or images reviewed: Labs reviewed by me, Image(s) reviewed by me Assessment/Plan Assessment/Plan Sepsis secondary to urinary tract infection: Blood cultures pending urine cultures negative, continue Rocephin Acute urinary tract infection Acute metabolic encephalopathy Flu type A positive: Tamiflu COVID test negative Chest x-ray negative CT head negative CT abdomen pelvis without contrast negative Hypertension Dementia History of CVA Patient is hospice revoked ; per patient's daughter she was never on hospice Time spent 55 minutes Daughter Octavia [phone] at bedside Plan discussed with: Patient My Orders Orders - CLYDE HINKLE MD Procedure Category Date Status Time Blood Culture SAUL 08/11/24 In Process 13:00 Date of Service: Aug 12, 2024 Billing Provider: CLYDE HINKLE MD Common Visit Codes: [id number] INP/OBS CARE(HIGH) CLYDE HINKLE MD Aug 12, 2024 10:00
[2024-08-12] MEDS: TEMAZEPAM 15 MG CAP PO ONE (21:50)
[2024-08-12 23:20] VITALS: BP 139/61; PULSE 62; RESP 18; TEMP 97.3; O2SAT 95
[2024-08-12] MEDS ORDERED: ROSU5TAB5 PO (23:36)
[2024-08-12] MEDS ORDERED: LISI20TA56 PO (23:36)
[2024-08-12] MEDS ORDERED: DONE10TA9 PO (23:36)
[2024-08-12] MEDS ORDERED: CHOL20007 PO (23:36)
[2024-08-13] VITALS (8 sets, daily range): BP systolic 127–152; BP diastolic 60–81; PULSE 53–76; RESP 15–20; TEMP 97.8–98.1; O2SAT 94–98
--- NOTE | 2024-08-13 09:22 | DVHPN2 ---
Reviewed: Care Plan, H&P, Labs, Medications, Previous Orders, Radiology Changes from previous H/P or p: No Changes Eyes: No Pain, No Vision change, No Conjunctivae inflammation, No Eyelid inflammation, No Other, No Redness ENT: No Ear pain, No Ear discharge, No Nose pain, No Nose discharge, No Nose congestion, No Mouth pain, No Mouth swelling, No Throat pain, No Throat swelling, No Other Cardiovascular: No Chest Pain, No Palpitations, No Orthopnea, No Paroxysmal Noc. Dyspnea, No Edema, No Lt Headedness, No Other Respiratory: No Cough, No Dry, No Shortness of breath, No SOB with excertion, No Wheezing, No Hemoptysis, No Pleuritic Pain, No Sputum, No Other Gastrointestinal: No Nausea, No Vomiting; Abdominal Pain; No Diarrhea, No Constipation, No Melena, No Hematochezia, No Other Genitourinary: No Dysuria, No Frequency, No Incontinence, No Hematuria, No Retention, No Other Musculoskeletal: No other, No neck pain, No shoulder pain, No arm pain, No back pain, No hand pain, No leg pain, No foot pain Skin: No Rash, No Lesions, No Jaundice, No Bruising, No Other Objective Vitals Vital Signs Date Time Temp Pulse Resp B/P (MAP) Pulse Ox O2 Delivery O2 Flow Rate FiO2 08/13/24 05:00 97.8 56 18 127/67 (87) 96 97.8 08/12/24 23:20 Room Air* 0 21 Intake/Output Intake and Output 08/13/24 07:00 Intake Total 300 ml Balance 300 ml Intake Oral 240 ml IV Total 60 ml # Voids 3 Medications Current Medications Medications Dose Ordered Sig/Billy Route Start Time Stop Time Status Last Admin Dose Admin Oseltamivir Phosphate 30 mg Q12HR PO 08/10/24 22:00 08/15/24 21:59 08/12/24 21:27 30 MG Ceftriaxone Sodium 50 ml @ 100 mls/hr DAILY@09 IV 08/11/24 09:00 08/12/24 09:18 100 MLS/HR Donepezil HCl 10 mg HS PO 08/10/24 22:00 08/12/24 21:27 10 MG Sodium Chloride 1,000 ml @ 60 mls/hr [id number] IV 08/10/24 18:45 08/12/24 20:56 60 MLS/HR Acetaminophen/ Hydrocodone Bitart 1 tab Q4HP PRN PO 08/10/24 18:45 Ondansetron HCl 4 mg Q4HP PRN IV 08/10/24 18:45 Docusate Sodium 100 mg BIDPRN PRN PO 08/10/24 18:45 Multivitamins 1 tab DAILY PO 08/11/24 10:00 08/12/24 09:18 1 TAB Acetaminophen 650 mg Q6HP PRN PO 08/10/24 18:45 Nitroglycerin 0.4 mg Q5MINP PRN SL 08/10/24 20:30 Morphine Sulfate 2 mg Q30M PRN IV 08/10/24 20:30 Laboratory Results Laboratory Tests 08/11/24 03:43 Urinalysis Test 08/10/24 14:43 Urine Color Yellow (Yellow) Urine Clarity Clear (Clear) Urine pH 6.5 (5.0-9.0) Urine Specific [place] 1.048 (1.001-1.035) Urine Protein Trace (Negative) H Urine Ketones Negative (Negative) Urine Blood 1+ /uL (Negative) H Urine Nitrite Negative (Negative) Urine Bilirubin Negative (Negative) Urine Urobilinogen Normal mg/dL (Negative) Urine Leukocyte Esterase 1+ /uL (Negative) Urine RBC 15 /hpf (0 - 4) Urine WBC 28 /hpf (0 - 5) Urine Squamous Epithelial Cells Few /hpf (<5) Urine Bacteria None seen /hpf (None Seen) Urine Mucus Few (None Seen) Urine Glucose Normal mg/dL (Normal) Microbiology Microbiology Date/Time Source Procedure Growth Status 08/11/24 16:50 Blood Blood Culture - Preliminary NO GROWTH AFTER 24 HOURS OF INCUBATION. Resulted 08/10/24 14:43 Voided Urine Urine Culture - Preliminary Resulted Labs and/or images reviewed: Labs reviewed by me, Image(s) reviewed by me Assessment/Plan Assessment/Plan Sepsis secondary to urinary tract infection: Blood cultures negative urine cultures growing Gram-negative rods, continue Rocephin Acute urinary tract infection Acute metabolic encephalopathy Flu type A positive: Tamiflu COVID test negative Chest x-ray negative CT head negative CT abdomen pelvis without contrast negative Hypertension Dementia: Aricept History of CVA Per Patient's daughter she was never on hospice Time spent 55 minutes Daughter Octavia [phone] at bedside Examined the patient with the help of women designer Plan discussed with: Patient Date of Service: Aug 13, 2024 Billing Provider: CLYDE HINKLE MD Common Visit Codes: [id number] INP/OBS CARE(HIGH) CLYDE HINKLE MD Aug 13, 2024 09:22
--- NOTE | 2024-08-13 11:28 | ECG ---
[facility] Test Date: 2024-08-10 Test Time: 11:48:35 Pat Name: BEVERLY BHATIA Department: EMS Room: 0201T Gender: F Electrical Tests Supervisor: ED : 1940 Requested By: SILVINA LANDEROS Order Number: [id number] Reading MD: Measurements Intervals [place] Rate: 58 P: 55 [place]: 162 QRS: 4 QRSD: 105 T: 21 QT: 396 QTc: 389 Interpretive Statements Sinus rhythm Probable left atrial enlargement Abnormal R-wave progression, early transition Baseline wander in lead(s) II Please click the below link to view image of tracing.
[2024-08-13] MEDS: HYDROcodone-ACET 5/325MG TAB PO PRN (21:58)
[2024-08-14] VITALS (8 sets, daily range): BP systolic 125–154; BP diastolic 70–80; PULSE 57–64; RESP 15–18; TEMP 96.6–98.6; O2SAT 93–98
--- NOTE | 2024-08-14 08:56 | DVHPN2 ---
Reviewed: Care Plan, H&P, Labs, Medications, Previous Orders, Radiology Changes from previous H/P or p: No Changes Eyes: No Pain, No Vision change, No Conjunctivae inflammation, No Eyelid inflammation, No Other, No Redness ENT: No Ear pain, No Ear discharge, No Nose pain, No Nose discharge, No Nose congestion, No Mouth pain, No Mouth swelling, No Throat pain, No Throat swelling, No Other Cardiovascular: No Chest Pain, No Palpitations, No Orthopnea, No Paroxysmal Noc. Dyspnea, No Edema, No Lt Headedness, No Other Respiratory: No Cough, No Dry, No Shortness of breath, No SOB with excertion, No Wheezing, No Hemoptysis, No Pleuritic Pain, No Sputum, No Other Gastrointestinal: No Nausea, No Vomiting; Abdominal Pain; No Diarrhea, No Constipation, No Melena, No Hematochezia, No Other Genitourinary: No Dysuria, No Frequency, No Incontinence, No Hematuria, No Retention, No Other Musculoskeletal: No other, No neck pain, No shoulder pain, No arm pain, No back pain, No hand pain, No leg pain, No foot pain Skin: No Rash, No Lesions, No Jaundice, No Bruising, No Other Objective Vitals Vital Signs Date Time Temp Pulse Resp B/P (MAP) Pulse Ox O2 Delivery O2 Flow Rate FiO2 08/14/24 08:41 98.1 58 18 133/76 (95) 95 98.1 08/13/24 20:00 Room Air* 0 21 Intake/Output Intake and Output 08/14/24 07:00 Intake Total 893 ml Balance 893 ml Intake Oral 893 ml # Voids 8 # Bowel Movements 2 Medications Current Medications Medications Dose Ordered Sig/Billy Route Start Time Stop Time Status Last Admin Dose Admin Oseltamivir Phosphate 30 mg Q12HR PO 08/10/24 22:00 08/15/24 21:59 08/13/24 21:57 30 MG Ceftriaxone Sodium 50 ml @ 100 mls/hr DAILY@09 IV 08/11/24 09:00 08/13/24 09:30 100 MLS/HR Donepezil HCl 10 mg HS PO 08/10/24 22:00 08/13/24 21:57 10 MG Sodium Chloride 1,000 ml @ 60 mls/hr [id number] IV 08/10/24 18:45 08/14/24 06:14 60 MLS/HR Acetaminophen/ Hydrocodone Bitart 1 tab Q4HP PRN PO 08/10/24 18:45 08/13/24 21:58 1 TAB Ondansetron HCl 4 mg Q4HP PRN IV 08/10/24 18:45 Docusate Sodium 100 mg BIDPRN PRN PO 08/10/24 18:45 Multivitamins 1 tab DAILY PO 08/11/24 10:00 08/13/24 09:34 1 TAB Acetaminophen 650 mg Q6HP PRN PO 08/10/24 18:45 Nitroglycerin 0.4 mg Q5MINP PRN SL 08/10/24 20:30 Morphine Sulfate 2 mg Q30M PRN IV 08/10/24 20:30 Laboratory Results Laboratory Tests 08/11/24 03:43 Urinalysis Test 08/10/24 14:43 Urine Color Yellow (Yellow) Urine Clarity Clear (Clear) Urine pH 6.5 (5.0-9.0) Urine Specific [place] 1.048 (1.001-1.035) Urine Protein Trace (Negative) H Urine Ketones Negative (Negative) Urine Blood 1+ /uL (Negative) H Urine Nitrite Negative (Negative) Urine Bilirubin Negative (Negative) Urine Urobilinogen Normal mg/dL (Negative) Urine Leukocyte Esterase 1+ /uL (Negative) Urine RBC 15 /hpf (0 - 4) Urine WBC 28 /hpf (0 - 5) Urine Squamous Epithelial Cells Few /hpf (<5) Urine Bacteria None seen /hpf (None Seen) Urine Mucus Few (None Seen) Urine Glucose Normal mg/dL (Normal) Microbiology Microbiology Date/Time Source Procedure Growth Status 08/11/24 16:50 Blood Blood Culture - Preliminary NO GROWTH AFTER 48 HOURS OF INCUBATION. Resulted 08/10/24 14:43 Voided Urine Urine Culture - Final Complete Labs and/or images reviewed: Labs reviewed by me, Image(s) reviewed by me Assessment/Plan Assessment/Plan Sepsis secondary to urinary tract infection: Blood cultures negative urine cultures growing more than three bacteria, continue Rocephin for two weeks Acute urinary tract infection Acute metabolic encephalopathy secondary to urinary tract infection Flu type A positive: Tamiflu COVID test negative Chest x-ray negative CT head negative CT abdomen pelvis without contrast negative Hypertension Dementia: Aricept History of CVA Per Patient's daughter she was never on hospice Time spent 55 minutes Daughter Octavia [phone] at bedside Examined the patient with the help of desktop support manager [facility] for two weeks and the plan is acceptable with the patient's daughter. Plan discussed with: Patient My Orders Orders - CLYDE HINKLE MD Procedure Category Date Status Time * Chief Console Operator CONS 08/13/24 Transmitted Consult Pt Request For Service PT 08/14/24 Logged 08:40 Insert Midline ORDERS 08/14/24 Transmitted 08:41 Date of Service: Aug 14, 2024 Billing Provider: CLYDE HINKLE MD Common Visit Codes: [id number] INP/OBS CARE(HIGH) CLYDE HINKLE MD Aug 14, 2024 08:56
--- NOTE | 2024-08-14 09:02 | DVHDS2 ---
Discharge Summary Date of Admission Aug 10, 2024 at 20:19 Date of Discharge: Aug 14, 2024 Admitting Diagnosis Altered mental status and confusion Wounds: None Labs/Diagnostic Data: Laboratory Results Test 08/11/24 03:43 08/10/24 15:27 08/10/24 14:43 08/10/24 12:40 White Blood Count 9.0 10^3/uL (4.4-10.8) Red Blood Count 4.55 10^6/uL (4.0-5.20) Hemoglobin 12.5 g/dL (12.2-16.2) Hematocrit 37.4 % (36.0-46.0) Mean Corpuscular Volume 82.2 fL (80.0-100.0) Mean Corpuscular Hemoglobin 27.5 pg (28.0-32.0) Mean Corpuscular Hemoglobin Concent 33.4 g/dL (32.0-36.0) Red Cell Distribution Width 15.0 % (11.8-14.3) Platelet Count 155 10^3/uL (140-450) Mean Platelet Volume 8.0 fL (6.9-10.8) Neutrophils (%) (Auto) 81.2 % (37.0-80.0) Lymphocytes (%) (Auto) 12.9 % (10.0-50.0) Monocytes (%) (Auto) 5.6 % (0.0-12.0) Eosinophils (%) (Auto) 0.0 % (0.0-7.0) Basophils (%) (Auto) 0.3 % (0.0-2.0) Neutrophils # (Auto) 7.3 10 ^3/uL (1.6-8.6) Lymphocytes # (Auto) 1.2 10 ^3/uL (0.4-5.4) Monocytes # (Auto) 0.5 10 ^3/uL (0-1.3) Eosinophils # (Auto) 0 10 ^3/uL (0-0.8) Basophils # (Auto) 0 10 ^3/uL (0-0.2) Nucleated Red Blood Cells 0.1 % Sodium Level 139 mmol/L (136-145) Potassium Level 3.6 mmol/L (3.5-5.1) Chloride Level 108 mmol/L (98-107) Carbon Dioxide Level 23 mmol/L (20-31) Anion Gap 8 (5-15) Blood Urea Nitrogen 20 mg/dL (9-23) Creatinine 1.14 mg/dL (0.550-1.02) Glomerular Filtration Rate Calc 47 mL/min (>90) BUN/Creatinine Ratio 17.5 (10.0-20.0) Serum Glucose 74 mg/dL (74-106) Calcium Level 11.6 mg/dL (8.7-10.4) Total Bilirubin 0.8 mg/dL (0.2-1.0) Aspartate Amino Transferase (AST) 27 U/L (13-40) Alanine Aminotransferase (ALT) 13 U/L (7-40) Alkaline Phosphatase 72 U/L (46-116) Total Protein 6.3 g/dL (5.7-8.2) Albumin 4.0 g/dL (3.2-4.8) Troponin I High Sensitivity 11 ng/L (</=34) Urine Color Yellow (Yellow) Urine Clarity Clear (Clear) Urine pH 6.5 (5.0-9.0) Urine Specific [place] 1.048 (1.001-1.035) Urine Protein Trace (Negative) Urine Ketones Negative (Negative) Urine Blood 1+ /uL (Negative) Urine Nitrite Negative (Negative) Urine Bilirubin Negative (Negative) Urine Urobilinogen Normal mg/dL (Negative) Urine Leukocyte Esterase 1+ /uL (Negative) Urine RBC 15 /hpf (0 - 4) Urine WBC 28 /hpf (0 - 5) Urine Squamous Epithelial Cells Few /hpf (<5) Urine Bacteria None seen /hpf (None Seen) Urine Mucus Few (None Seen) Urine Glucose Normal mg/dL (Normal) Influenza Type A Antigen Positive (Negative) Influenza Type B Antigen Negative (Negative) SARS-CoV-2 Antigen (Rapid) Negative (NEGATIVE) Group A Streptococcus Rapid Positive Test 08/10/24 12:10 Lipase 31 U/L (12-53) Other Laboratory Tests 08/11/24 03:43 Brief Hx & Hospital Course: 84-year-old female with severe dementia hypotension history of CVA burden by family for altered mental status and confusion found to have acute urinary tract infection started on Rocephin blood cultures negative urine cultures mixed growing more than three bacteria Rocephin will be continued for two more weeks patient also had a type B flu treated with the Tamiflu currently she is on room air afebrile. CT head is negative chest x-ray negative CT abdomen pelvis without contrast negative. Discussed with the daughter Octavia at bedside and the patient will be discharged to senior living facility for IV antibiotics for two weeks for complicated UTI. General condition stable but poor at the time of discharge. Consults/Reason for consult None Operations or Procedures CT head CT abdomen pelvis without contrast Condition at Discharge: Fair Final Diagnosis/Problems List Sepsis secondary to urinary tract infection: Blood cultures negative urine cultures growing more than three bacteria, continue Rocephin for two weeks Acute urinary tract infection Acute metabolic encephalopathy secondary to urinary tract infection Flu type A positive: Tamiflu COVID test negative Chest x-ray negative CT head negative CT abdomen pelvis without contrast negative Hypertension Dementia: Aricept History of CVA [facility]charge Disposition[facility] Discharge Instruct/Medications Diet: Cardiac 2g Na,low cholest Activity: Light activity Follow Up/Referral: [facility] with the jail Medications: Rocephin 1 g IV daily for two weeks for complicated UTI See list for other meds 39 (Time taken for discharge summary 39 minutes) Discharge Statement: "Patient was advised to return to the ER or call 911 if any headaches, dizziness, shortness of breath, chest pain, abdominal pain, bleeding, fevers, or worsening of medical condition. Patient was counseled about treatment plan, medications, possible side effects, patientverbalized understanding. All questions were answered to the best of my ability. This discharge took greater then 30 minutes in planning, reviewing documentation, counseling the patient, and discussing with other team members." ASSESSMENT ASSESSMENT Hospital Course Improved Assessment Sepsis secondary to urinary tract infection: Blood cultures negative urine cultures growing more than three bacteria, continue Rocephin for two weeks Acute urinary tract infection Acute metabolic encephalopathy secondary to urinary tract infection Flu type A positive: Tamiflu COVID test negative Chest x-ray negative CT head negative CT abdomen pelvis without contrast negative Hypertension Dementia: Aricept History of CVA Date of Service: Aug 14, 2024 Billing Provider: CLYDE HINKLE MD Common Visit Codes: [id number] DISCH DAY >30min CLYDE HINKLE MD Aug 14, 2024 09:02
== END 2024-08-14 22:25 | DRG 871 ==
LOC: EDBD 11:39 → ER 11:39 → TELE 20:19 → TELE-CENTR 08-12 23:19 → CENTRAL 08-14 06:26
PROVIDERS: ADMIT Nurse Practitioner Family; ATTEND Family Medicine
PROC: 05H933Z Insertion of Infusion Device into Right Brachial Vein, Percutaneous Approach (ICD-10-PCS; principal; 2024-08-14)
PROC: B54MZZA Ultrasonography of Right Upper Extremity Veins, Guidance (ICD-10-PCS; 2024-08-14)
DX: A41.9 Sepsis, unspecified organism (principal); G93.41 Metabolic encephalopathy; N17.0 Acute kidney failure with tubular necrosis; N39.0 Urinary tract infection, site not specified; J10.1 Influenza due to other identified influenza virus with other respiratory manifestations; Z20.822 Contact with and (suspected) exposure to COVID-19; I10 Essential (primary) hypertension; J02.0 Streptococcal pharyngitis; F03.90 Unspecified dementia, unspecified severity, without behavioral disturbance, psychotic disturbance, mood disturbance, and anxiety; Z86.73 Personal history of transient ischemic attack (TIA), and cerebral infarction without residual deficits; Z79.899 Other long term (current) drug therapy
CPT/HCPCS: 36415; 70450; 71045; 74177; 80053; 81001; 83690; 84484; 85025; 87040; 87086; 87426; 87804; 87880; 93005; 97163; 99291; G0378; G9035